=== PATIENT | female | born 1930 | race Caucasian/White ===

== ENCOUNTER 2017-10-31 19:10 | Observation (INO) | payer BC, OTHER ==
[2017-10-31] MEDS: GLUCAGON 1 MG INJ IV (19:58)
[2017-10-31] MEDS: ONDANSETRON 4 MG INJ IV (19:59)
[2017-10-31] MEDS: SOD CHLORIDE 0.9% 1,000 ML IV (19:59)
[2017-10-31 20:01] LABS: ADD MAN DIFF? NO
[2017-10-31 20:05] LABS: BASOPHIL # 0.1 10^3/ul (0.0-0.1); BASOPHILS % 0.9 % (0.0-2.0); EOSINOPHILS # 0.2 10^3/ul (0.0-0.5); EOSINOPHILS % 1.6 % (0.0-7.0); HEMOGLOBIN 14.5 g/dl (12.0-16.0); LYMPHOCYTES # 3.4 10^3/ul (0.8-2.9); LYMPHOCYTES % 34.5 % (15.0-51.0); MEAN CORPUSCULAR HEMOGLOBIN 27.7 pg (29.0-33.0); MEAN PLATELET VOLUME 10.4 fl (7.4-10.4); MONOCYTE # 0.7 10^3/ul (0.3-0.9); MONOCYTES % 6.8 % (0.0-11.0); NEUTROPHIL # 5.4 10^3/ul (1.6-7.5); NEUTROPHILS % 55.5 % (39.0-77.0); PLATELET COUNT 374 10^3/UL (140-415); RED BLOOD COUNT 5.24 10^6/ul (4.20-5.40); RED CELL DISTRIBUTION WIDTH 13.8 % (11.5-14.5)
[2017-10-31 20:05] LABS: WHITE BLOOD COUNT 9.7 10^3/ul (4.8-10.8)
[2017-10-31 20:18] LABS: INR 0.87; PROTIME 11.9 Sec (11.9-14.9); PT RATIO 0.9
[2017-10-31 20:19] LABS: PARTIAL THROMBOPLASTIN TIME 24.7 Sec (25.0-35.0)
[2017-10-31 20:20] LABS: ALANINE AMINOTRANSFERASE 35 IU/L (13-69); ALBUMIN 3.9 g/dl (3.3-4.9); ALBUMIN/GLOBULIN RATIO 1.05; ALKALINE PHOSPHATASE 105 IU/L (42-121); ANION GAP 15 (8-16); ASPARTATE AMINO TRANSFERASE 17 IU/L (15-46); BILIRUBIN,INDIRECT 0.7 mg/dl (0-1.1); BILIRUBIN,TOTAL 0.7 mg/dl (0.2-1.3); BLOOD UREA NITROGEN 22 mg/dl (7-20); CARBON DIOXIDE 29 mmol/L (21-31); CHLORIDE 98 mmol/L (97-110); CREATININE 0.72 mg/dl (0.44-1.00); GLUCOSE 360 mg/dl (70-220); LIPASE 99 U/L (23-300); POTASSIUM 4.1 mmol/L (3.5-5.1); SODIUM 138 mmol/L (135-144); TOTAL PROTEIN 7.6 g/dl (6.1-8.1)
[2017-10-31 20:33] LABS: TROPONIN-I < 0.012 ng/ml (0.00-0.12)
[2017-10-31] MEDS: morphine 10 MG INJ IV (20:55)
[2017-10-31] MEDS: METOCLOPRAMIDE 10 MG INJ IV (21:01)
[2017-10-31] MEDS ORDERED: ACETAMINOPHEN 325 MG TAB PO (22:30)
[2017-10-31] MEDS ORDERED: ONDANSETRON 4 MG INJ IV (22:30)
[2017-11-01] MEDS: morphine 4 MG/ML VIAL IV ×3 (01:00→11:33)
[2017-11-01] MEDS ORDERED: NACL 0.9% 3 ML SYG IV (01:30)
[2017-11-01] MEDS ORDERED: ALBUTEROL/IPRATROPIUM (NEB) 3 ML AMP HHN (01:30)
[2017-11-01] MEDS: DEXTROSE 5%-0.45% NACL 1,000 ML IV ×2 (02:36→16:26)
[2017-11-01 04:56] LABS: ADD MAN DIFF? NO
[2017-11-01 05:04] LABS: WHITE BLOOD COUNT 13.9 10^3/ul (4.8-10.8)
[2017-11-01 05:04] LABS: BASOPHILS % 0.2 % (0.0-2.0); HEMATOCRIT 41.4 % (37.0-47.0); HEMOGLOBIN 13.1 g/dl (12.0-16.0); LYMPHOCYTES # 1.3 10^3/ul (0.8-2.9); LYMPHOCYTES % 9.3 % (15.0-51.0); MEAN CORPUSCULAR HEMOGLOBIN 27.3 pg (29.0-33.0); MEAN CORPUSCULAR HGB CONC 31.6 g/dl (32.0-37.0); MEAN CORPUSCULAR VOLUME 86.4 fl (82.0-101.0); MEAN PLATELET VOLUME 10.6 fl (7.4-10.4); MONOCYTE # 0.3 10^3/ul (0.3-0.9); MONOCYTES % 2.2 % (0.0-11.0); NEUTROPHIL # 12.3 10^3/ul (1.6-7.5); NEUTROPHILS % 87.9 % (39.0-77.0); PLATELET COUNT 321 10^3/UL (140-415); RED BLOOD COUNT 4.79 10^6/ul (4.20-5.40); RED CELL DISTRIBUTION WIDTH 13.5 % (11.5-14.5)
[2017-11-01 05:16] LABS: ALANINE AMINOTRANSFERASE 29 IU/L (13-69); ALBUMIN 3.7 g/dl (3.3-4.9); ALBUMIN/GLOBULIN RATIO 1.19; ALKALINE PHOSPHATASE 91 IU/L (42-121); ANION GAP 18 (8-16); ASPARTATE AMINO TRANSFERASE 15 IU/L (15-46); BILIRUBIN,INDIRECT 0.7 mg/dl (0-1.1); BILIRUBIN,TOTAL 0.7 mg/dl (0.2-1.3); BLOOD UREA NITROGEN 19 mg/dl (7-20); CALCIUM 9.5 mg/dl (8.4-10.2); CARBON DIOXIDE 26 mmol/L (21-31); CHLORIDE 101 mmol/L (97-110); CREATININE 0.62 mg/dl (0.44-1.00); GLUCOSE 342 mg/dl (70-220); MAGNESIUM 1.6 mg/dl (1.7-2.5); PHOSPHORUS 4.2 mg/dl (2.5-4.9); POTASSIUM 4.5 mmol/L (3.5-5.1); SODIUM 140 mmol/L (135-144); TOTAL PROTEIN 6.8 g/dl (6.1-8.1)
[2017-11-01] MEDS ORDERED: GLUCAGON 1 MG INJ IM (06:15)
[2017-11-01] MEDS ORDERED: GLUCOSE GEL 15 GRAM TUBE BUCCAL (06:15)
[2017-11-01] MEDS ORDERED: DEXTROSE 50% 50 ML SYRINGE IV ×2 (06:15)
[2017-11-01] MEDS ORDERED: GLUCOSE GEL 15 GRAM TUBE PO ×2 (06:15)
[2017-11-01] MEDS: INSULIN ASPART [NOVOLOG] 3 ML PEN SC ×6 (06:49→20:25)
[2017-11-01] MEDS ORDERED: INSULIN ASPART [NOVOLOG] 3 ML PEN SC ×2 (08:00→12:00)
[2017-11-01] MEDS: FAMOTIDINE 20 MG INJ IV (09:37)
[2017-11-01] MEDS: INSULIN GLARGINE [LANtus] 3 ML PEN SC ×2 (09:37→20:24)
[2017-11-01 10:40] LABS: HEMOGLOBIN A1C 11.6 % (0-5.9)
[2017-11-01] MEDS: MAGNESIUM SULFATE 3 GM in DEXTROSE 5% 100 ML IVPB (11:11)
[2017-11-01] MEDS: ONDANSETRON 4 MG INJ IV (11:34)
[2017-11-01] MEDS ORDERED: Insulin NOVOLOG SS MODERATE Algorithm(NPO/TPN/ENTERAL FEEDS) SC (12:00)
[2017-11-01] MEDS ORDERED: PROPOFOL 20 ML (12:51)
[2017-11-01] MEDS ORDERED: MIDAZOLAM 1 MG/ML 2 ML INJ (12:52)
[2017-11-01] MEDS ORDERED: LIDOCAINE 1% (MDV) 20 ML INJ (12:52)
[2017-11-01] MEDS ORDERED: FENTAnyl 50 MCG/ML VIAL (12:52)
[2017-11-01] MEDS ORDERED: PHENYLephrine (100 MCG/ML) 5ML SYG (13:02)
[2017-11-01] MEDS ORDERED: FAMOTIDINE 20 MG INJ (13:13)
[2017-11-01] MEDS ORDERED: METOCLOPRAMIDE 10 MG INJ (13:13)
[2017-11-01] MEDS ORDERED: NALOXONE (0.4 MG/ML) INJ (13:17)
[2017-11-01] MEDS: ACCU-CHEK XX (20:26)
[2017-11-02] MEDS ORDERED: ACCU-CHEK XX (02:00)
[2017-11-02] MEDS: DEXTROSE 5%-0.45% NACL 1,000 ML IV ×2 (03:58→07:48)
[2017-11-02] MEDS: PANTOPRAZOLE 40 MG INJ IV (05:10)
[2017-11-02 06:07] LABS: ADD MAN DIFF? NO
[2017-11-02 06:16] LABS: BASOPHIL # 0.1 10^3/ul (0.0-0.1); BASOPHILS % 0.6 % (0.0-2.0); EOSINOPHILS # 0.1 10^3/ul (0.0-0.5); EOSINOPHILS % 1.1 % (0.0-7.0); HEMATOCRIT 34.4 % (37.0-47.0); HEMOGLOBIN 10.9 g/dl (12.0-16.0); LYMPHOCYTES # 3.4 10^3/ul (0.8-2.9); LYMPHOCYTES % 34.6 % (15.0-51.0); MEAN CORPUSCULAR HEMOGLOBIN 27.6 pg (29.0-33.0); MEAN CORPUSCULAR HGB CONC 31.7 g/dl (32.0-37.0); MEAN CORPUSCULAR VOLUME 87.1 fl (82.0-101.0); MEAN PLATELET VOLUME 10.7 fl (7.4-10.4); MONOCYTE # 0.9 10^3/ul (0.3-0.9); MONOCYTES % 9.4 % (0.0-11.0); NEUTROPHIL # 5.3 10^3/ul (1.6-7.5); PLATELET COUNT 274 10^3/UL (140-415); RED BLOOD COUNT 3.95 10^6/ul (4.20-5.40); RED CELL DISTRIBUTION WIDTH 14.3 % (11.5-14.5)
[2017-11-02 06:16] LABS: WHITE BLOOD COUNT 9.8 10^3/ul (4.8-10.8)
[2017-11-02 06:50] LABS: ANION GAP 11 (8-16); BLOOD UREA NITROGEN 13 mg/dl (7-20); CALCIUM 8.7 mg/dl (8.4-10.2); CARBON DIOXIDE 27 mmol/L (21-31); CHLORIDE 106 mmol/L (97-110); CREATININE 0.63 mg/dl (0.44-1.00); GLUCOSE 124 mg/dl (70-220); MAGNESIUM 1.9 mg/dl (1.7-2.5); PHOSPHORUS 3.2 mg/dl (2.5-4.9); POTASSIUM 3.5 mmol/L (3.5-5.1); SODIUM 140 mmol/L (135-144)
[2017-11-02] MEDS: INSULIN ASPART [NOVOLOG] 3 ML PEN SC ×4 (08:00→12:33)
[2017-11-02] MEDS: FAMOTIDINE 20 MG INJ IV (08:46)
== END 2017-11-02 16:09 | disposition home or self-care (01) ==
LOC: FTE 19:10 → PP2 22:08
DX: T18.128A Food in esophagus causing other injury, initial encounter (principal); X58.XXXA Exposure to other specified factors, initial encounter; K22.2 Esophageal obstruction; K44.9 Diaphragmatic hernia without obstruction or gangrene; E10.65 Type 1 diabetes mellitus with hyperglycemia; I10 Essential (primary) hypertension; Z86.73 Personal history of transient ischemic attack (TIA), and cerebral infarction without residual deficits
CPT/HCPCS: 36415; 71010; 74000; 80048; 80053; 82962; 83036; 83690; 83735; 84100; 84484; 85025; 85610; 85730; 93005; 96374; 96375; 99217; 99285-25; G0378